=== PATIENT | female | born 1970 | race Two or more races ===

== ENCOUNTER 2023-05-06 06:00 | Day surgery (SDC) | payer OTHER ==
[2023-04-29 15:54] LABS: ALBUMIN 4.1 gm/dL (3.4-5.0); BILIRUBIN TOTAL 0.37 mg/dL (0.3-1.2); CALCIUM 10.1 mg/dL (8.5-10.1); CREATININE SERUM 0.67 mg/dL (0.55-1.02); GFR 91.72; GLOBULINA 3.8 G/DL (2.4-3.5); POTASSIUM 4.28 mEq/L (3.5-5.1); TOTAL PROTEIN 7.9 gm/dL (6.4-8.2)
[~2023-05-06 06:00] MED LIST: ATACAND HCT 161 EACH PO; [UNRECOGNIZED DRUG - OTHER] PO
[2023-05-06] MEDS ORDERED: DEXLANSOPRAZOLE60 MG (09:14)
== END 2023-05-06 14:45 | disposition home or self-care (01) ==
LOC: CIR.AMB 06:00 → O/R 06:00 → SURG 06:00 → EDSTATUS 10:45 → SURG 10:45 → O/R 10:50 → SURG 10:50 → CIR.AMB 14:45
PROVIDERS: ATTEND Specialist
DX: K80.10 Calculus of gallbladder with chronic cholecystitis without obstruction (principal)